=== PATIENT | male | born 1985 | race Two or more races ===

== ENCOUNTER 2018-10-19 18:51 | Emergency (ER) | payer SELFPAY ==
[~2018-10-19] VITALS: Ht 165.1 cm; Wt 61.2 kg
[2018-10-19] MEDS ORDERED: PANTOPRAZOLE SODIUM 40 MG VIAL ONE (19:06)
[2018-10-19] MEDS ORDERED: ONDANSETRON 4 MG/2 ML VIAL ONE (19:06)
[2018-10-19] MEDS ORDERED: PANTOPRAZOLE SODIUM 40 MG VIAL IV ONE (19:15)
[2018-10-19] MEDS ORDERED: ONDANSETRON 4 MG/2 ML VIAL IV ONE (19:15)
[2018-10-19] MEDS ORDERED: IV NORMAL SALINE 1000 ML BAG IV ONE (19:15)
[2018-10-19 19:28] LABS: BASOPHILS % (AUTO) 0.2 % (0.0-2.0); EOSINOPHILS # (AUTO) 0.1 K/uL (0.0-0.7); EOSINOPHILS % (AUTO) 1.1 % (0.0-7.0); HEMATOCRIT 39.4 % (36.7-47.1); HEMOGLOBIN 13.6 g/dL (12.5-16.3); LYMPHOCYTES # (AUTO) 0.8 K/uL (20.0-40.0); LYMPHOCYTES % (AUTO) 8.6 % (20.5-51.5); MEAN CORPUSCULAR HEMOGLOBIN 31.5 uug (23.8-33.4); MEAN CORPUSCULAR HGB CONC 35 g/dL (32.5-36.3); MONOCYTES # (AUTO) 0.3 K/uL (2.0-10.0); MONOCYTES % (AUTO) 3.4 % (0.0-11.0); NEUTROPHILS # (AUTO) 8.2 K/uL (1.8-8.9); NEUTROPHILS % (AUTO) 86.7 % (38.5-71.5); PLATELET COUNT (AUTO) 252 K/uL (152-348); RED BLOOD CELL COUNT(AUTO) 4.33 MIL/uL (4.06-5.63); WHITE BLOOD COUNT (AUTO) 9.4 K/uL (3.6-10.2)
[2018-10-19 19:35] LABS: CREATININE 0.8 mg/dL (0.6-1.3); POTASSIUM 3.3 mmol/L (3.5-5.1)
[2018-10-19 19:41] LABS: BILIRUBIN,DIRECT 0.2 mg/dL (0.0-0.2); BILIRUBIN,TOTAL 0.5 mg/dL (0.2-1.0); TOTAL PROTEIN, SERUM 6.3 g/dL (6.4-8.2)
[2018-10-19] MEDS ORDERED: diphenhydrAMINE 50 MG/1 ML VIAL ONE (19:44)
[2018-10-19] MEDS ORDERED: METOCLOPRAMIDE HCL 10 MG/2 ML VIAL ONE (19:44)
[2018-10-19] MEDS ORDERED: METOCLOPRAMIDE HCL 10 MG/2 ML VIAL IV ONE (19:45)
[2018-10-19] MEDS ORDERED: diphenhydrAMINE 50 MG/1 ML VIAL IV ONE (19:45)
--- NOTE | 2018-10-19 20:35 | NUR ---
Adrian dubon in ED - 10/19/18 at 2106 by TANYA Pt back to ER from CT.
--- NOTE | 2018-10-19 20:35 | NUR ---
Pt out of ER for CT.
--- NOTE | 2018-10-19 20:50 | NUR ---
Pt back to ER from CT.
[2018-10-19 21:06] LABS: *BILIRUBIN,URIN NEGATIVE (NEGATIVE); *BLOOD, URINE NEGATIVE (NEGATIVE); *CLARITY,URINE CLOUDY (CLEAR); *COLOR,URINE YELLOW (YELLOW); *KETONES,URINE NEGATIVE (NEGATIVE); LEUKOCYTE ESTERASE ,URINE NEGATIVE (NEGATIVE); NITRITE, URINE NEGATIVE (NEGATIVE); PH,URINE 8.5 (5.0-8.0); UGLUCOSE NEGATIVE (NEGATIVE)
[2018-10-19 21:22] LABS: BACTERIA,URINE FEW /HPF (NONE SEEN); WBC,URINE 0-3 /HPF (0-3)
[2018-10-19 21:23] LABS: URINE AMORPHOUS PHOSPHATES MANY /HPF
--- NOTE | 2018-10-19 21:27 | NUR ---
Pt states nausea is gone, but still in a lot of pain.
[2018-10-19] MEDS ORDERED: MORPHINE SULFATE 4 MG/1 ML DISP.SYRIN ONE (21:38)
[2018-10-19] MEDS ORDERED: MORPHINE SULFATE 4 MG/1 ML DISP.SYRIN IV ONE (21:45)
[2018-10-19 22:32] LABS: ETHANOL < 3 MG/DL (0-0)
[2018-10-19 22:42] LABS: *AMPHETAMINE, URINE POSITIVE (NEGATIVE); *BARBITURATE, URINE NEGATIVE (NEGATIVE); *CANNABINOID, URINE POSITIVE (NEGATIVE); *COCCAINE, URINE NEGATIVE (NEGATIVE); *OPIATE, URINE NEGATIVE (NEGATIVE); *PHENCYCLIDINE SCREEN,URINE NEGATIVE (NEGATIVE)
--- NOTE | 2018-10-20 00:18 | NUR ---
Pt awoke and ambulated to the bathroom with steady gait, assisted patient back to bed, no falls noted. Pt went back to sleep.
--- NOTE | 2018-10-20 02:00 | NUR ---
Pt sleeping in bed, lethargic, barely arousable, has difficulty answering questions.
--- NOTE | 2018-10-20 03:00 | NUR ---
Pt awoke, was making burping sounds, asked for ice water.
--- NOTE | 2018-10-20 03:20 | NUR ---
Pt states his stomach is cramping.
[2018-10-20] MEDS ORDERED: ONDANSETRON 4 MG/2 ML VIAL IV ONE (04:00)
[2018-10-20] MEDS ORDERED: ONDANSETRON 4 MG/2 ML VIAL ONE (04:22)
--- NOTE | 2018-10-20 04:50 | NUR ---
Patient discharged to home in stable conditon. Written and verbal after care instructions given. Pt alert and oriented x 3. Patient verbalizes understanding of instructions. Pt refused to sign discharge instructions, refusing to leave, escorted by security out of the premises, ambulated with steady gait, VSS, no acute signs of distress, all belongings taken.
[2018-10-20 04:53] VITALS: BP 155/82
== END 2018-10-20 04:54 | disposition home or self-care (01) ==
LOC: ER 18:51
DX: K52.9 Noninfective gastroenteritis and colitis, unspecified (principal); F15.10 Other stimulant abuse, uncomplicated
CPT/HCPCS: 36415; 74176; 80048; 80076; 80307; 81000; 81001; 83690; 85025; 96361; 96374; 96375; 96376; 99284; C9113; G0480; J1200; J2270; J2405 ×2; J2765; A4663; J7030

== ENCOUNTER 2024-04-19 12:18 | Emergency (ER) | payer MEDICAID ==
[~2024-04-19] VITALS: Ht 160 cm; Wt 63.5 kg
[2024-04-19] MEDS ORDERED: KETOROLAC TROMETHAMINE 15 MG INJ ONE (12:41)
[2024-04-19] MEDS ORDERED: METOCLOPRAMIDE HCL 10 MG/2 ML VIAL ONE (12:41)
[2024-04-19] MEDS: METOCLOPRAMIDE HCL 10 MG/2 ML VIAL IV ONE (12:46)
[2024-04-19] MEDS: KETOROLAC TROMETHAMINE 15 MG INJ IVP ONE (12:46)
[2024-04-19 13:00] LABS: BASOPHILS % (AUTO) 0.3 % (0.0-2.0); DIFFERENTIAL COMMENT 1; HEMATOCRIT 42.8 % (36.7-47.1); HEMOGLOBIN 14.6 g/dL (12.5-16.3); LYMPHOCYTES # (AUTO) 0.6 K/uL (0.8-4.8); LYMPHOCYTES % (AUTO) 5.2 % (20.5-51.5); MEAN CORPUSCULAR HEMOGLOBIN 31.2 uug (23.8-33.4); MEAN CORPUSCULAR HGB CONC 34 g/dL (32.5-36.3); MEAN CORPUSCULAR VOLUME 91.7 fL (73.0-96.2); MONOCYTES # (AUTO) 0.4 K/uL (0.1-1.30); MONOCYTES % (AUTO) 3.3 % (0.0-11.0); NEUTROPHILS # (AUTO) 10.6 K/uL (1.8-8.9); NEUTROPHILS % (AUTO) 91.2 % (38.5-71.5); PLATELET COUNT (AUTO) 232 K/uL (152-348); RED BLOOD CELL COUNT(AUTO) 4.67 MIL/uL (4.06-5.63); RED CELL DISTRIBUTION WIDTH 12.6 % (12.1-16.2); WHITE BLOOD COUNT (AUTO) 11.6 K/uL (3.6-10.2)
[2024-04-19 13:03] LABS: *BILIRUBIN,URIN NEGATIVE (NEGATIVE); *BLOOD, URINE NEGATIVE (NEGATIVE); *CLARITY,URINE CLEAR (CLEAR); *COLOR,URINE YELLOW (YELLOW); *KETONES,URINE TRACE (NEGATIVE); *PROTEIN,URINE 1+ (NEGATIVE); *UROBILINOGEN,URINE 0.2 E.U./dl (NORMAL); LEUKOCYTE ESTERASE ,URINE NEGATIVE (NEGATIVE); NITRITE, URINE NEGATIVE (NEGATIVE); PH,URINE 8.5 (5.0-8.0); UGLUCOSE NEGATIVE (NEGATIVE)
[2024-04-19 13:05] LABS: BACTERIA,URINE FEW /HPF (NONE SEEN); URINE AMORPHOUS PHOSPHATES FEW /HPF; WBC,URINE 0-3 /HPF (0-3)
[2024-04-19 13:10] LABS: AMMONIA < 10 umol/L (11-32)
[2024-04-19 13:13] LABS: ETHANOL < 3 MG/DL (0-10)
[2024-04-19 13:16] LABS: *AMPHETAMINE, URINE NEGATIVE (NEGATIVE); *BARBITURATE, URINE NEGATIVE (NEGATIVE); *BENZODIAZEPINE, URINE NEGATIVE (NEGATIVE); *CANNABINOID, URINE POSITIVE (NEGATIVE); *COCCAINE, URINE NEGATIVE (NEGATIVE); *OPIATE, URINE NEGATIVE (NEGATIVE); *PHENCYCLIDINE SCREEN,URINE NEGATIVE (NEGATIVE); ACETAMINOPHEN < 10.0 ug/mL (10-30); FENTANYL, URINE NEGATIVE (NEGATIVE)
[2024-04-19 13:23] LABS: CALCIUM 9.4 mg/dL (8.5-10.1); CARBON DIOXIDE 25 mmol/L (21-32); CHLORIDE 103 mmol/L (98-107); CREATININE 0.9 mg/dL (0.6-1.3); GLUCOSE 154 mg/dL (74-106); POTASSIUM 3.7 mmol/L (3.5-5.1); SODIUM SERUM 140 mmol/L (136-145); UREA NITROGEN, BLOOD 12 mg/dL (7-18)
[2024-04-19 13:36] LABS: ALANINE AMINOTRANSFERASE 29 U/L (16-63); ALBUMIN 4.1 g/dL (3.4-5.0); ALKALINE PHOSPHATASE 108 U/L (50-136); ASPARTATE AMINOTRANSFERASE 21 U/L (15-37); BILIRUBIN,DIRECT 0.2 mg/dL (0.0-0.2); BILIRUBIN,TOTAL 0.6 mg/dL (0.2-1.0); LIPASE 21 U/L (16-77)
[2024-04-19] MEDS: IV NORMAL SALINE 1000 ML BAG IV ONE (14:02)
[2024-04-19] MEDS ORDERED: BUPRENORPHINE HCL 2 MG TAB.SUBL SL ONE (14:06)
[2024-04-19] MEDS: BUPRENORPHINE HCL 2 MG TAB.SUBL SL ONE (14:09)
[2024-04-19] MEDS ORDERED: METO-295 PO (16:57)
[2024-04-19 17:06] VITALS: BP 110/63; TEMP 98; O2SAT 98
== END 2024-04-19 17:08 | disposition home or self-care (01) ==
LOC: ER 12:18
DX: R11.2 Nausea with vomiting, unspecified (principal); Z87.19 Personal history of other diseases of the digestive system; Z88.7 Allergy status to serum and vaccine
CPT/HCPCS: 80076; 80048; 81001; 82140; 83690; 85025; 85730; 84484; 36415; 74176; 93005; 99285; 96361; 96374; 96375; 80299; 80320; 80307; J1885; J2765; J7040; A4606; A4663; C1758; G0480